=== PATIENT | female | born 1970 | race Caucasian/White ===

== ENCOUNTER → 2020-12-31 | Outpatient (CLI) | payer BC, MEDICAID ==
--- NOTE | 2020-12-31 15:02 | RAD ---
Examination: MRI of the left fourth digit without contrast HISTORY: History of left index finger interphalangeal joint sprain COMPARISON: None available Technique: Multiplanar multisequence MR imaging of the fourth digit were performed without contrast. FINDINGS: The alignment of the metacarpophalangeal, interphalangeal joints grossly appears unremarkable. The fl exor tendons, extensor tendon grossly appears intact. There is no acute fracture or dislocation ident ified. There is mild increased T2 signal identified in the soft tissue of volar to the distal phalan x of the fourth digit. There is small focus of increased T2 signal measuring 4 mm identified in the m iddle phalanx of the third digit could be a small enchondroma. IMPRESSION: 1. Mild increased T2 signal identified in the soft tissue of the volar to the distal phalanx of the fourth digit could be secondary to tenosynovitis or injury or edema. 2. Small focus of increased T2 signal identified measuring 4 mm identified in the middle phalanx of the third digit could be a small enchondroma. Electronically signed by: Davis Pineda MD (12/31/2020 2:59 PM) [id number]
== END ==
LOC: MRI 11:01
PROVIDERS: ATTEND Physician Assistant
DX: S63.635A Sprain of interphalangeal joint of left ring finger, initial encounter (principal); X58.XXXA Exposure to other specified factors, initial encounter; Y93.89 Activity, other specified; Y92.89 Other specified places as the place of occurrence of the external cause; Y99.8 Other external cause status
CPT/HCPCS: 73218